=== PATIENT | female | born 1965 | race Caucasian/White ===

== ENCOUNTER 2016-07-07 10:17 | Emergency (ER) | payer BC ==
[~2016-07-07] VITALS: Ht 162.6 cm; Wt 95.3 kg
[2016-07-07 10:23] VITALS: BP 155/96; PULSE 97; RESP 15; TEMP 98.2; O2SAT 98
--- NOTE | 2016-07-07 10:45 | NUR ---
Placed in room 7
--- NOTE | 2016-07-07 10:50 | NUR ---
ER at bedside examining patient.
--- NOTE | 2016-07-07 10:50 | NUR ---
Patient presents to the emergency department with complaints of neck pain x 1 month and headache 5/10 x 3 days. took aspirin 81 mg last night at 1500 last night which helped. denies n/v/d. 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 will continue to monitor
--- NOTE | 2016-07-07 11:15 | NUR ---
Pt ambulatory to radiology
--- NOTE | 2016-07-07 11:40 | NUR ---
report given to Carlie AUSTIN
--- NOTE | 2016-07-07 11:46 | NUR ---
Dr. Boucher at bedside discussing plan of care
[2016-07-07 12:05] VITALS: BP 121/68; PULSE 77; RESP 16; TEMP 98.2; O2SAT 98
--- NOTE | 2016-07-07 12:05 | NUR ---
Patient given written and verbal discharge instructions and verbalizes understanding. ER MD Dr. morfin discussed with patient the results and treatment provided. Patient in stable condition. ID arm band removed. no Rx given. Patient educated on pain management and to follow up with PMD. Pain Scale 0/10 Opportunity for questions provided and answered.
== END 2016-07-07 12:05 | disposition home or self-care (01) ==
LOC: SED 10:17
DX: M19.90 Unspecified osteoarthritis, unspecified site (principal); M54.2 Cervicalgia; Z88.2 Allergy status to sulfonamides
CPT/HCPCS: 70450-TC; 72125-TC; 99284